=== PATIENT | female | born 1955 | race Caucasian/White ===

== ENCOUNTER → 2018-06-25 | Outpatient (CLI) | payer OTHER | LOC: BMCIMAGING 10:53 | PROVIDERS: ATTEND Family Medicine | DX: S52.612A Displaced fracture of left ulna styloid process, initial encounter for closed fracture (principal); M18.12 Unilateral primary osteoarthritis of first carpometacarpal joint, left hand; W19.XXXA Unspecified fall, initial encounter ==

== ENCOUNTER → 2018-07-15 | Outpatient (CLI) | payer OTHER | LOC: BMCIMAGING 09:30 | PROVIDERS: ATTEND Physician Assistant | DX: S52.612G Displaced fracture of left ulna styloid process, subsequent encounter for closed fracture with delayed healing (principal) ==